=== PATIENT | male | born 1970 | race Caucasian/White ===

== ENCOUNTER 2019-03-31 17:02 | Observation (INO) ==
[2019-03-31] MEDS ORDERED: ASPIRIN 325 MG TABLET ONE (17:22)
[2019-03-31] MEDS ORDERED: NITROGLYCERIN SL 0.4 MG TABLET SL PRN (17:22)
[2019-03-31] MEDS ORDERED: ASPIRIN 325 MG TABLET PO STA (17:22)
[2019-03-31 17:25] LABS: Basophils # 0.1 10*3/uL (0.0-0.2); Basophils % 0.9 % (0.0-0.8); Eosinophils # 0.1 10*3/uL (0.0-0.87); Eosinophils % 1.3 % (0.00-10.9); Hematocrit 45.6 VOL% (42.0-52.0); Hemoglobin 16.2 GM/DL (14.0-18.0); Immature Granulocytes % 0.4 %; Immature Granulocytes Absolute 0.03 #; Lymphocytes # 2.4 10*3/uL (1.4-4.0); Lymphocytes % 34.8 % (21.2-54.2); Mean Corpuscular HGB Conc 35.5 GM/DL (32-36); Mean Corpuscular Volume 88.9 FL (87-102); Mean Platelet Volume 8.7 FL (9.6-12.0); Monocytes % 9.4 % (1.7-12.7); Neutrophils % 53.2 % (38.7-73.9); Platelet Count 229 T/CUMM (130-400); Red Blood Count 5.13 MC/CUMM (3.8-5.5); Red Cell Distribution Width 11.5 % (9.3-17.3); White Blood Count 6.8 T/CUMM (4-12)
[2019-03-31 17:35] LABS: PT Patient Result 10.4 SECS (9.6-12.2)
[2019-03-31 17:50] LABS: Bilirubin,Total 0.5 MG/DL (0.2-1.0); Calcium 8.5 MG/DL (8.5-10.1); Osmolality,Calculated 272.8 MOS/KG (273-304); Total Protein 7.5 G/DL (6.4-8.3)
[2019-03-31] MEDS ORDERED: MAGNESIUM SULF RIDER 2 GM in PREMIX 1 EACH IV PRN (18:41)
[2019-03-31] MEDS ORDERED: MAGNESIUM SULF RIDER 4 GM in PREMIX 1 EACH IV PRN (18:41)
[2019-03-31] MEDS ORDERED: ONDANSETRON 4 MG/2 ML VIAL IV PRN (18:41)
[2019-03-31] MEDS ORDERED: ATORVASTATIN 20 MG TABLET PO SCH (21:00)
[2019-03-31] MEDS ORDERED: ENOXAPARIN 40 MG/0.4 ML SYRINGE SUBCUT SCH (21:00)
[2019-03-31] MEDS: METOPROLOL TARTRATE 25 MG TABLET PO SCH (22:02)
[2019-03-31] MEDS ORDERED: ZALEPLON 5 MG CAPSULE PO ONE (22:37)
[2019-04-01 01:24] LABS: Risk Ratio 3.86; VLDL CHOLESTEROL 38.2 MG/DL
[2019-04-01 03:52] LABS: Apearance,Urine CLEAR (Clear); Bilirubin,Urine Negative (Negative); Blood, Urine Small mg/dL (Negative); Glucose,Urine (UA) Negative (Negative); Ketones,Urine Negative (Negative); Mucus,Urine Occasional /LPF (Occasional); Nitrite,Urine Negative (Negative); Protein,Urine Negative; RBC,Urine 1 /HPF (0-4); Urine Color Straw (Yellow); Urine Specific Gravity 1.009 (1.001-1.035); Urine Urobilinogen < 2.0 EU/DL (0.2-1.0)
[2019-04-01] MEDS ORDERED: LOSARTAN 25 MG TABLET PO SCH (09:00)
[2019-04-01] MEDS ORDERED: ASPIRIN EC 81 MG TABLET PO SCH (09:00)
[2019-04-01] MEDS: METOPROLOL TARTRATE 25 MG TABLET PO SCH (10:07)
[2019-04-01 16:39] VITALS: BP 135/85
== END 2019-04-01 17:05 | disposition home or self-care (01) ==
LOC: N.EDINP 17:02 → N.ED 17:02 → SUATTDRO 18:39 → N.TELEN 19:46 → N.2W 04-01 09:17
PROVIDERS: ADMIT Internal Medicine; ATTEND Internal Medicine